=== PATIENT | male | born 1970 | race African-American/Black ===

== ENCOUNTER 2017-06-09 10:32 | Inpatient (IN) | payer OTHER ==
--- NOTE | 2017-06-09 11:05 | EDPHYS ---
Physician Documentation [facility] Name: Gabe Marte III Age: 47 yrs Sex: Male : 1970 Arrival Date: 06/09/2017 Time: 10:37 Bed 18 Private MD: Gabe Velez E ED Physician Justo Lehman HPI: 06/09 10:46 This 47 yrs old Black Male presents to ER via Unassigned with complaints of Shortness rn Of Breath. 10:46 The patient has shortness of breath at rest, with light activity. Onset: The rn symptoms/episode began/occurred at an unknown time. Duration: The symptoms are continuous. The patient's shortness of breath is aggravated by exertion, light activity, supine position, talking, walking. Severity of symptoms: At their worst the symptoms were moderate in the emergency department the symptoms are unchanged. The patient has experienced similar episodes in the past. The patient has been recently seen at the [facility] Emergency Department. Seen by me this past week, left AMA after being admitted, returns for worsening of swelling of testicles and legs, + sob, unable to obtain home O2 due to insurance issues.. Historical: - Allergies: 10:51 No Known Allergies; em - Home Meds: 10:51 Lisinopril/HCTZ 20/25 mg 1 tab daily for High Blood Pressure [Active]; metformin 500 mg em Oral Tb24 1 tab once daily [Active]; - PMHx: 10:51 Diabetes - NIDDM; Hypertension; em - PSHx: 10:51 None; em - Immunization history:: Adult Immunizations up to date. - Social history:: Smoking status: Patient/guardian denies using tobacco. - Family history:: not pertinent. - Hospitalizations: : No recent hospitalization is reported. ROS: 10:46 Constitutional: Negative for fever, chills, and weight loss, Eyes: Negative for injury, rn pain, redness, and discharge, Neck: Negative for injury, pain, and swelling, Cardiovascular: Negative for chest pain, palpitations Respiratory: Negative for wheezing, and pleuritic chest pain, Abdomen/GI: Negative for abdominal pain, nausea, vomiting, diarrhea, and constipation, MS/Extremity: Negative for injury and deformity, Skin: Negative for injury, rash, and discoloration, Neuro: Negative for headache, weakness, numbness, tingling, and seizure. Exam: 10:46 Constitutional: Morbidly obese male, no acute distress, mild tachypnea and hunched rn over chair. Head/Face: Normocephalic, atraumatic. Eyes: Pupils equal round and reactive to light, extra-ocular motions intact. Lids and lashes normal. Conjunctiva and sclera are non-icteric and not injected. Cornea within normal limits. Periorbital areas with no swelling, redness, or edema. Cardiovascular: Regular rate and rhythm with a normal S1 and S2. No gallops, murmurs, or rubs. Normal PMI, no JVD. No pulse deficits. Respiratory: + mild tachypnea with diminished air movement bilaterally Abdomen/GI: Soft, non-tender, with normal bowel sounds. No distension or tympany. No guarding or rebound. No evidence of tenderness throughout. MS/ Extremity: Pulses equal, no cyanosis. Neurovascular intact. 3+ pitting edema bilateral lower ext Neuro: Awake and alert, GCS 15, oriented to person, place, time, and situation. Cranial nerves II-XII grossly intact. Motor strength 5/5 in all extremities. Sensory grossly intact. 11:11 ECG was reviewed by the Attending Physician. rn Vital Signs: 10:51 BP 116 / 74; Pulse 110; Resp 24; Pulse Ox 81% on R/A; Weight 217.72 kg (R); Height 5 em ft. 8 in. (172.72 cm); Pain 0/10; 10:56 Pulse Ox 94% on 4 lpm NC; em 12:00 BP 143 / 97; Pulse 100; Resp 20; Pulse Ox 92% on 3 lpm NC; Pain 0/10; em 14:31 BP 145 / 94; Pulse 91; Resp 20; Pulse Ox 92% on 3 lpm NC; Pain 0/10; em 10:51 Body Mass Index 72.98 (217.72 kg, 172.72 cm) em 10:51 [facility] on 4L via NC em MDM: 10:42 Patient medically screened. rn 11:02 Differential diagnosis: Anemia CHF exacerbation, pulmonary edema. Data reviewed: vital rn signs, nurses notes, old medical records, lab test result(s), EKG, radiologic studies, and as a result, I will admit patient. Counseling: I had a detailed discussion with the patient and/or guardian regarding: the historical points, exam findings, and any diagnostic results supporting the discharge/admit diagnosis, lab results, radiology results, the need for further work-up and treatment in the hospital. Admission orders: after a detailed discussion of the patient's condition and case, the admit orders are written by me. 06/09 10:46 Order name: BMP rn 06/09 10:46 Order name: BNP rn 06/09 10:46 Order name: CBC with Diff rn 06/09 10:46 Order name: Magnesium rn 06/09 10:46 Order name: Troponin (emerg Dept Use Only) rn 06/09 11:59 Order name: Basic Metabolic Panel; Complete Time: 15:13 EDMS 06/09 10:46 Order name: XRAY CXR (1 view) rn 06/09 10:46 Order name: EKG; Complete Time: 10:47 rn 06/09 11:42 Order name: RAD; Complete Time: 15:13 EDCT 06/09 12:00 Order name: Magnesium; Complete Time: 15:13 EDCT 06/09 12:03 Order name: CBC with Automated Diff; Complete Time: 15:13 EDCT 06/09 12:07 Order name: Troponin (Emerg Dept Use Only); Complete Time: 15:13 EDCT 06/09 12:11 Order name: BNP B-Type Natriuretic Peptide; Complete Time: 15:13 EDCT 06/09 10:46 Order name: Cardiac monitoring; Complete Time: 11:04 rn 06/09 10:46 Order name: EKG - Nurse/Tech; Complete Time: 11:04 rn 06/09 10:46 Order name: IV Saline Lock; Complete Time: 13:56 rn 06/09 10:46 Order name: Labs collected and sent; Complete Time: 13:56 rn 06/09 10:46 Order name: O2 Per Protocol; Complete Time: 11:04 rn 06/09 10:46 Order name: O2 Sat Monitoring; Complete Time: 11: rn 06/09 12:43 Order name: Diet Heart Healthy; Complete Time: 12:44 em EC:11 Rate is 102 beats/min. Rhythm is regular. Right axis deviation noted. QRS is positive rn in leads I, aVF. IA interval is normal. QRS interval is normal. QT interval is normal. No Q waves. T waves are Normal. No ST changes noted. Clinical impression: Sinus tachycardia. Interpreted by me. Administered Medications: 12:00 Drug: Lasix 40 mg Route: IVP; Site: left antecubital; tw2 14:05 Follow up: Response: No adverse reaction em Disposition: 06/09/17 11:04 Hospitalization ordered by Malathi Graham for Inpatient Admission. Preliminary diagnosis are Anasarca, Unspecified combined systolic (congestive) and diastolic (congestive) heart failure, Hypoxemia. - Bed requested for Telemetry/MedSurg (Inpatient). - Status is Inpatient Admission. em - Condition is Stable. - Problem is an ongoing problem. - Symptoms are unchanged. UTI on Admission? No Signatures: Dispatcher [employer] EDSaba Matias RN Hiram Higgins, Justo Obrien LVN, MD MD rn Wise, Tara, RN RN tw2 Corrections: (The following items were deleted from the chart) 12:20 10:46 Constitutional: Morbidly obese male, no acute distress, mild tachypnea and rn hunched over chair. Head/Face: Normocephalic, atraumatic. Eyes: Pupils equal round and reactive to light, extra-ocular motions intact. Lids and lashes normal. Conjunctiva and sclera are non-icteric and not injected. Cornea within normal limits. Periorbital areas with no swelling, redness, or edema. Cardiovascular: Regular rate and rhythm with a normal S1 and S2. No gallops, murmurs, or rubs. Normal PMI, no JVD. No pulse deficits. Respiratory: + mild tachypnea with diminished air movement bilaterally Abdomen/GI: Soft, non-tender, with normal bowel sounds. No distension or tympany. No guarding or rebound. No evidence of tenderness throughout. MS/ Extremity: Pulses equal, no cyanosis. Neurovascular intact. 3+ pitting edema bilateral lower ext Neuro: Awake and alert, GCS 15, oriented to person, place, time, and situation. Cranial nerves II-XII grossly intact. Motor strength 5/5 in all extremities. Sensory grossly intact. rn
--- NOTE | 2017-06-09 11:05 | ER ---
Nurse's Notes [facility] Name: Gabe Marte III Age: 47 yrs Sex: Male : 1970 Arrival Date: 06/09/2017 Time: 10:37 Bed 18 Private MD: Gabe Velez E Diagnosis: Anasarca;Unspecified combined systolic (congestive) and diastolic (congestive) heart failure;Hypoxemia Presentation: 06/09 10:43 Presenting complaint: Patient states: "my scrotum is swollen, I was here last Friday em but I left." Denies chest pain and SOB, 81% RA, diminished bilaterally. 10:43 Transition of care: patient was not received from another setting of care. Onset of em symptoms was June 03, 2017. Care prior to arrival: None. 10:43 Method Of Arrival: Wheelchair em 10:50 Acuity: SHIV 2 iw Triage Assessment: 10:51 General: Appears uncomfortable, obese, Behavior is calm, cooperative. Pain: Denies em pain. Respiratory: Breath sounds are diminished bilaterally. Onset: The symptoms/episode began/occurred last Friday, the patient has mild shortness of breath. Historical: - Allergies: 10:51 No Known Allergies; em - Home Meds: 10:51 Lisinopril/HCTZ 20/25 mg 1 tab daily for High Blood Pressure [Active]; metformin 500 mg em Oral Tb24 1 tab once daily [Active]; - PMHx: 10:51 Diabetes - NIDDM; Hypertension; em - PSHx: 10:51 None; em - Immunization history:: Adult Immunizations up to date. - Social history:: Smoking status: Patient/guardian denies using tobacco. - Family history:: not pertinent. - Hospitalizations: : No recent hospitalization is reported. Screenin:43 Abuse screen: Denies threats or abuse. Nutritional screening: No deficits noted. em Tuberculosis screening: No symptoms or risk factors identified. Fall Risk None identified. Assessment: 10:43 General: Appears uncomfortable, obese, Behavior is calm, cooperative. Pain: Denies em pain. Neuro: Level of Consciousness is awake, alert, obeys commands, Oriented to person, place, time, situation. Cardiovascular: Denies chest pain, diaphoresis, shortness of breath, Heart tones S1 S2 present Capillary refill < 3 seconds Patient's skin is warm and dry. Rhythm is regular. Respiratory: Airway is patent Respiratory effort is even, unlabored, Respiratory pattern is regular, symmetrical, Breath sounds are diminished bilaterally. GI: Abdomen is obese, Patient currently denies nausea, vomiting. : No signs and/or symptoms were reported regarding the genitourinary system. EENT: No signs and/or symptoms were reported regarding the EENT system. Derm: Skin is intact, Skin is pink, warm \\T\\ dry. Musculoskeletal: Range of motion: intact in all extremities. 10:55 Reassessment: I agree with above assessment by Hiram Pulido LVN. iw 11:52 Reassessment: Patient appears in no apparent distress at this time. Patient and/or em family updated on plan of care and expected duration. Pain level reassessed. Patient is alert, oriented x 3, equal unlabored respirations, skin warm/dry/pink. Patient denies pain at this time. Patient states feeling better. Patient states symptoms have improved. 12:45 Reassessment: Patient appears in no apparent distress at this time. Patient and/or em family updated on plan of care and expected duration. Pain level reassessed. Patient is alert, oriented x 3, equal unlabored respirations, skin warm/dry/pink. Patient denies pain at this time. Patient states feeling better. 13:30 Reassessment: Patient appears in no apparent distress at this time. Patient and/or em family updated on plan of care and expected duration. Pain level reassessed. Patient is alert, oriented x 3, equal unlabored respirations, skin warm/dry/pink. awaiting room assignment. 14:30 Reassessment: Patient appears in no apparent distress at this time. Patient and/or em family updated on plan of care and expected duration. Pain level reassessed. eating lunch, family at bedside. Vital Signs: 10:51 BP 116 / 74; Pulse 110; Resp 24; Pulse Ox 81% on R/A; Weight 217.72 kg (R); Height 5 em ft. 8 in. (172.72 cm); Pain 0/10; 10:56 Pulse Ox 94% on 4 lpm NC; em 12:00 BP 143 / 97; Pulse 100; Resp 20; Pulse Ox 92% on 3 lpm NC; Pain 0/10; em 14:31 BP 145 / 94; Pulse 91; Resp 20; Pulse Ox 92% on 3 lpm NC; Pain 0/10; em 10:51 Body Mass Index 72.98 (217.72 kg, 172.72 cm) em 10:51 ERP at [facility], placed on 4L via NC em ED Course: 10:37 Patient arrived in ED. mr 10:37 Gabe eVlez MD is Private Physician. mr 10:42 Justo Lehman MD is Attending Physician. rn 10:43 Patient has correct armband on for positive identification. Bed in low position. Call em light in reach. Side rails up X2. Adult w/ patient. 10:47 Hiram Pulido LVN is Primary Nurse. em 10:56 Arm band placed on. em 10:57 EKG done, by public health technologist. reviewed by Justo Lehman MD. at1 11:04 Malathi Graham MD is Hospitalizing Provider. rn 11:30 No provider procedures requiring assistance completed. Inserted saline lock: 20 gauge em in left antecubital area, using aseptic technique. Blood collected. 11:30 Initial lab(s) drawn, by me, sent to lab. em 14:41 Triage completed. iw 16:11 Patient admitted, IV remains in place. em Administered Medications: 12:00 Drug: Lasix 40 mg Route: IVP; Site: left antecubital; tw2 14:05 Follow up: Response: No adverse reaction em Outcome: 11:04 Decision to Hospitalize by Provider. rn 15:30 Admitted to Tele accompanied by tech, via wheelchair, room 213, with chart, Report em called to ROSARIO Lu 15:30 Condition: good 16:12 Patient left the ED. em Signatures: Mirtha Costa Hiram Pulido, REJI COBBLER MCKAY em Margot Sharp, RN RN iw Justo Lehman MD MD rn gonzales, Amanda, business affairs manager EKG Tat1 Asha Mills RN RN tw2 Corrections: (The following items were deleted from the chart) 10:59 10:51 BP 116 / 74; Pulse 110bpm; Resp 24bpm; Pulse Ox 81% RA; Pain 0/10; ERP at em bedisde, placed on 4L via NC; em 14:31 14:30 Reassessment: eating lunch, family at bedside em em
--- NOTE | 2017-06-09 11:20 | EKG ---
Test Date: 2017-06-09 Test Time: 10:50:27 Leach Runner: FRIDA MEASUREMENT RESULTS: Intervals: Rate: 102 MO: 138 QRSD: 102 QT: 378 QTc: 492 [place]: P: 52 MO: 138 QRS: 98 T: 27 INTERPRETIVE STATEMENTS: Sinus tachycardia Rightward axis Borderline ECG Compared to ECG 06/04/2017 13:06:00 Right-axis deviation now present Sinus rhythm no longer present Ventricular premature complex(es) no longer present Prolonged QT interval no longer present Electronically Signed On 06-09-17 11:19:19 CDT by Deacon Leroy
[2017-06-09] MEDS ORDERED: FUROSEMIDE 40 MG/4 ML VIAL ONE (11:26)
--- NOTE | 2017-06-09 11:42 | RAD REPORT ---
EXAM DESCRIPTION: RAD - Chest Single View - 06/09/2017 11:18 am CLINICAL HISTORY: Shortness of breath COMPARISON: 06/04/2017 FINDINGS: Portable technique limits examination quality. Moderate pulmonary edema is noted. The heart is moderately enlarged in size. No displaced fractures. IMPRESSION: Moderate CHF versus volume overload pattern.
[2017-06-09 11:57] LABS: Absolute Lymphocytes (CBC) 1.2 K/uL (0.7-4.9); Absolute Monocytes 0.6 K/uL (0.1-1.3); Absolute Neutrophil 5.1 K/uL (1.8-8.0); Basophils % 0.5 % (0-1.3); Hematocrit 42.5 % (39.6-49.0); Lymphocytes % 17.3 % (15.3-44.8); MCH 26.5 pg (27.0-35.0); MCV 85.4 fL (80-100); MPV 8.2 fL (7.6-11.3); Monocytes % 8.6 % (3.3-12.3); RBC Red Blood Cell Count 4.98 M/uL (4.33-5.43)
[2017-06-09 11:59] LABS: Potassium 4.5 mEq/L (3.6-5.0)
[2017-06-09 12:00] LABS: Magnesium 2.1 mg/dL (1.8-2.5)
[2017-06-09] MEDS: INSULIN -REGULAR HUMAN 50 UNIT/0.5 ML ML SQ SCH ×3 (15:25→20:23)
[2017-06-09] MEDS ORDERED: ACETAMINOPHEN 500 MG TAB PO PRN (15:25)
[2017-06-09] MEDS: FUROSEMIDE 40 MG/4 ML VIAL IV SCH (17:45)
--- NOTE | 2017-06-09 18:30 | P.HP ---
Certification for Inpatient Patient admitted to: Inpatient With expected LOS: >2 Midnights Patient will require the following post-hospital care: None Practitioner: I am a practitioner with admitting privileges, knowledge of patient current condition, hospital course, and medical plan of care. Services: Services provided to patient in accordance with Admission requirements found in Title 42 Section 412.3 of the Code of Federal Regulations Patient History Date of Service: 06/09/17 Primary Care Provider: Dr Velez Reason for admission: Scrotal Swelling History of Present Illness: Patient is a 47-year-old male with past medical history of hypertension, diabetes, chronic venous hypertension with ulcer to the left lower extremity undergoing wound care, and CHF who presented to the ED as patient noticed worsening swelling of his legs, scrotum along with shortness of breath. Patient' s symptoms are moderate and progressively worsening. The patient was evaluated in the ER for similar symptoms 3 days ago and was referred for admission at that time. However patient left AMA from the hospital and stated that he would just follow up with his primary care provider. An attempt was made to set up home oxygenation for him at that time however patient's insurance refused inpatient ever got home oxygen set up. Patient thus came back to the ER today as he is got progressively short of breath and scrotal swelling got worse. Patient of note also has been noncompliant with diet and fluid restrictions at home. He states that he is compliant with medication however mother at bedside states that he takes his medication every now and then only. Patient denies any nausea vomiting fever chills chest pain cough or sputum production. In the ER his vital signs showed hypoxia. His O2 saturations were 80% on room air however came up to 90% on 2 L. His workup revealed elevated BNP level 120, chest x-ray showed moderately enlarged heart and pulmonary edema. Creatinine was elevated at 1.25. Allergies No Known Allergies Allergy (Verified 12/30/16 09:45) Home Medications: Apixaban [Eliquis] 1 tab PO BID 06/09/17 Furosemide [Lasix] 1 tab PO DAILY 06/09/17 Metoprolol Tartrate [Lopressor] 25 mg PO BID 06/09/17 Spironolactone [Aldactone*] 1 tab PO DAILY 06/09/17 - Past Medical/Surgical History Has patient received pneumonia vaccine in the past: No Diabetic: No -: Morbid obesity -: NIDDM -: HTN -: Left leg wound -: Right knee surgery - Family History Father -: Hypertension, Diabetes - Social History Smoking Status: Never smoker Alcohol use: No CD- Drugs: No Caffeine use: No Place of Residence: Home Review of Systems General: As per HPI Physical Examination - Vital Signs Temperature: 97.4 F Blood Pressure: 138/88 Pulse: 103 Respirations: 20 Pulse Ox (%): 91 - Physical Exam General: Alert, In no apparent distress, Mild distress, Obese HEENT: Atraumatic Neck: Supple, JVD distended Respiratory: Normal air movement, Crackles/rales Cardiovascular: Regular rate/rhythm, Normal S1 S2 Gastrointestinal: Normal bowel sounds, Soft and benign, Non-distended, No tenderness Musculoskeletal: Swelling (3+ BL LE) Integumentary: Venous stasis ulcer (on the left foot. ) Neurological: Normal speech, Normal tone, Normal affect Lymphatics: No axilla or inguinal lymphadenopathy Urinary: Other (Scrotal Swelling. ) External genitalia: Edema Assessment and Plan - Problems (Diagnosis) (1) Acute exacerbation of CHF (congestive heart failure) Current Visit: Yes Status: Acute Plan: Acute worensing of CHF. Most likely 2.2 to Dietary and medicaiton noncompliance -BNP 120, However with BL LE and scrotal Swelling that is worse than before -Lasix 40mg BID and Fluid restriction -Cardiology consulted. Awaiting Reccs -May need Repeat ECHO. However last ECHO in feb 2017 with Diastolic Dysfunction and EF of > 50% -Spironolactone on board as well. Qualifiers: Heart failure type: diastolic Qualified Code(s): I50.33 - Acute on chronic diastolic (congestive) heart failure (2) Scrotal edema Current Visit: No Status: Acute Plan: Acute worsening of scrotal Edema. Most likely 2.2 to volume overload -IV Lasix -Elevate the area -Urology consult if needed. (3) Anasarca Onset Date: 02/24/17 Current Visit: No Status: Acute (4) Chronic venous hypertension w/ulcer and inflammation involv left side Onset Date: 02/24/17 Current Visit: No Status: Chronic Plan: Currently with Wound care and stable. (5) Diabetes Onset Date: 10/15/16 Current Visit: No Status: Chronic Qualifiers: Diabetes mellitus type: type 2 Diabetes mellitus terminal gauger insulin use: with terminal gauger use Diabetes mellitus complication status: with skin complications Diabetes mellitus complication detail: with foot ulcer Qualified Code(s): E11.621 - Type 2 diabetes mellitus with foot ulcer; L97.509 - Non-pressure chronic ulcer of other part of unspecified foot with unspecified severity; L97.509 - Non-pressure chronic ulcer of other part of unspecified foot with unspecified severity; L97.509 - Non-pressure chronic ulcer of other part of unspecified foot with unspecified severity; L97.509 - Non-pressure chronic ulcer of other part of unspecified foot with unspecified severity; Z79.4 - terminologist (current) use of insulin; Z79.4 - care home (current) use of insulin; Z79.4 - terminologist (current) use of insulin; Z79.4 - terminologist (current ) use of insulin (6) HTN (hypertension) Onset Date: 10/15/16 Current Visit: No Status: Chronic Qualifiers: Hypertension type: essential hypertension (7) Morbid obesity Onset Date: 02/24/17 Current Visit: No Status: Chronic (8) Obesity hypoventilation syndrome Current Visit: No Status: Chronic Discharge Plan: Other Plan to discharge in: 72 Hours - Advance Directives Does patient have a Living Will: No Does patient have a Durable POA for Healthcare: No - Code Status/Comfort Care Code Status Assessed: Yes Critical Care: No
[2017-06-09] MEDS: METOPROLOL TAR 25 MG TAB PO SCH (20:22)
[2017-06-09] MEDS: APIXABAN 5 MG TABLET PO SCH (20:22)
[2017-06-09] MEDS ORDERED: ENOXAPARIN 40 MG/0.4 ML SQ SCH (21:00)
[2017-06-10 00:09] LABS: Urine Appearance CLEAR; Urine Bilirubin NEGATIVE (NEG); Urine Blood NEGATIVE (NEG); Urine Color YELLOW; Urine Glucose NEGATIVE (NEG); Urine Protein TRACE (NEG); Urine Urobilinogen 0.2 mg/dL (0.2-1.0); Urine pH 5.5 (5.0-7.0)
[2017-06-10 01:06] LABS: Urine Microscopic Reflex ORDER UMIC
[2017-06-10 01:52] LABS: Urine Bacteria <20 /HPF (NONE SEEN); Urine RBC NONE SEEN /HPF (NONE SEEN)
[2017-06-10 01:53] LABS: Urine Culture Reflex Order NOT NEEDED
[2017-06-10 05:28] LABS: Absolute Lymphocytes (CBC) 1.4 K/uL (0.7-4.9); Absolute Monocytes 0.9 K/uL (0.1-1.3); Absolute Neutrophil 5.1 K/uL (1.8-8.0); Basophils % 0.7 % (0-1.3); Eosinophils % 3.4 % (0-4.4); Hematocrit 45.8 % (39.6-49.0); Lymphocytes % 18.2 % (15.3-44.8); MCH 26.3 pg (27.0-35.0); MCV 86.9 fL (80-100); MPV 8.2 fL (7.6-11.3); Monocytes % 11.2 % (3.3-12.3); RBC Red Blood Cell Count 5.27 M/uL (4.33-5.43)
[2017-06-10 05:44] LABS: Albumin 3.1 g/dL (3.2-5.5); Potassium 4.5 mEq/L (3.6-5.0); Protein, Total 7.2 g/dL (6.0-8.3)
[2017-06-10 05:49] LABS: Bilirubin Total 0.7 mg/dL (0.3-1.2); Magnesium 2.4 mg/dL (1.8-2.5); Phosphorus 5.5 mg/dL (2.5-4.3)
[2017-06-10 06:28] LABS: Anisocytosis SLIGHT; Blood Morphology Comment NOTED (NOT SEEN); Platelet Estimate ADEQ
[2017-06-10] MEDS: INSULIN -REGULAR HUMAN 50 UNIT/0.5 ML ML SQ SCH ×4 (07:30→21:00)
[2017-06-10] MEDS: SPIRONOLACTONE 25 MG TABLET PO SCH (08:22)
[2017-06-10] MEDS: APIXABAN 5 MG TABLET PO SCH ×2 (08:22→22:17)
[2017-06-10] MEDS: FUROSEMIDE 40 MG/4 ML VIAL IV SCH ×2 (08:22→17:13)
[2017-06-10] MEDS: METOPROLOL TAR 25 MG TAB PO SCH ×2 (08:22→22:17)
--- NOTE | 2017-06-10 10:28 | P.PN ---
Subjective Date of Service: 06/10/17 Primary Care Provider: Dr Velez Chief Complaint: Scrotal Swelling She is seen and examined at bedside with RN. Case discussed with nursing staff. Currently patient has no complaints to offer. States that his scrotal swelling is getting better but slowly. Is currently in getting ready to take a shower. Wound Care saw the patient yesterday as well. Review of Systems General: As per HPI Physical Examination - Vital Signs Temperature: 98.5 F Blood Pressure: 141/86 Pulse: 97 Respirations: 22 Pulse Ox (%): 91 - Physical Exam General: Alert, In no apparent distress, Obese HEENT: Atraumatic, PERRLA, EOMI Neck: Supple, JVD distended Respiratory: Normal air movement, Crackles/rales Cardiovascular: Regular rate/rhythm, Normal S1 S2 Gastrointestinal: Normal bowel sounds, No tenderness Musculoskeletal: Erythema, Tenderness, Warmth (Left leg wound that is chronic ) Integumentary: Skin breakdown, Skin lesion Neurological: Normal speech, Normal tone, Normal affect Lymphatics: No axilla or inguinal lymphadenopathy External genitalia: Edema (Scrotal Swelling noted. Improved from yesterday) - Studies Medications List Reviewed: Yes Assessment & Plan - Problems (Diagnosis) (1) Acute exacerbation of CHF (congestive heart failure) Current Visit: Yes Status: Acute Plan: Acute worensing of ESCHF. Most likely 2.2 to Dietary and medicaiton noncompliance -BNP 120, However with BL LE and scrotal Swelling that is worse than before -Lasix 40mg BID and Fluid restriction -Cardiology consulted. Awaiting Reccs -May need Repeat ECHO. However last ECHO in feb 2017 with Diastolic Dysfunction and EF of > 50% -Spironolactone on board as well. -Setup for home oxgyen since Rest o2 < 87% on RA, Extertional o2<80 on RA and improves to o2> 92 on 4LNC Qualifiers: Heart failure type: diastolic Qualified Code(s): I50.33 - Acute on chronic diastolic (congestive) heart failure (2) Scrotal edema Current Visit: No Status: Acute Plan: Acute worsening of scrotal Edema. Most likely 2.2 to volume overload -IV Lasix -Elevate the area -Urology consult if needed. (3) Anasarca Onset Date: 02/24/17 Current Visit: No Status: Acute (4) Chronic venous hypertension w/ulcer and inflammation involv left side Onset Date: 02/24/17 Current Visit: No Status: Chronic Plan: Currently with Wound care and stable. (5) Diabetes Onset Date: 10/15/16 Current Visit: No Status: Chronic Qualifiers: Diabetes mellitus type: type 2 Diabetes mellitus roasterman insulin use: with roasterman use Diabetes mellitus complication status: with skin complications Diabetes mellitus complication detail: with foot ulcer Qualified Code(s): E11.621 - Type 2 diabetes mellitus with foot ulcer; L97.509 - Non-pressure chronic ulcer of other part of unspecified foot with unspecified severity; L97.509 - Non-pressure chronic ulcer of other part of unspecified foot with unspecified severity; L97.509 - Non-pressure chronic ulcer of other part of unspecified foot with unspecified severity; L97.509 - Non-pressure chronic ulcer of other part of unspecified foot with unspecified severity; Z79.4 - manager terminal (current) use of insulin; Z79.4 - penitentiary (current) use of insulin; Z79.4 - penitentiary (current) use of insulin; Z79.4 - manager terminal (current ) use of insulin (6) HTN (hypertension) Onset Date: 10/15/16 Current Visit: No Status: Chronic Qualifiers: Hypertension type: essential hypertension (7) Morbid obesity Onset Date: 02/24/17 Current Visit: No Status: Chronic (8) Obesity hypoventilation syndrome Current Visit: No Status: Chronic Plan: Will need home oxygen setup
--- NOTE | 2017-06-10 10:44 | RAD REPORT ---
EXAM DESCRIPTION: RAD - Chest Pa And Lat (2 Views) - 06/10/2017 10:38 am CLINICAL HISTORY: Shortness of breath, CHF history COMPARISON: June 09 TECHNIQUE: PA and lateral views of the chest were obtained. FINDINGS: The lungs are adequate volume. Vasculature and lung markings remain prominent. Cardiomegal y is still present. Lateral views are limited due to large body habitus. Trachea is midline. No ple ural effusion or pneumothorax seen. No acute bony finding noted. No aortic abnormality. IMPRESSION: CHF/volume overload pattern not substantially different from prior day study.
--- NOTE | 2017-06-10 17:41 | CON ---
Date of Consultation: 06/10/2017 Reason For Consultation: Anasarca. History Of Present Illness: Mr. Marte is a 47-year-old black male, morbidly obese, who has hyperten harsha, diabetes, has high risk factors for DVT for which he takes Eliquis. He is supposed to be on li sinopril, hydrochlorothiazide, and metformin as home. He is also supposed to be on metoprolol, Eliqu is, and aldactone. He came in with anasarca. He is now on IV 40 Lasix b.i.d., metoprolol, as well a s Eliquis and aldactone. Echocardiogram showed an ejection fraction 60% with left ventricular compli ance issue in February 2017. His chest x-ray showed CHF. EKG showed sinus tachycardia. Past Medical History: As stated above. Allergies: NONE. Review of Systems: Negative. Social History: Negative. Family History: Negative. Medications: Listed earlier. Physical Examination: General: He is obese. Vital Signs: Stable. Afebrile. HEENT: Negative. Neck: Supple no bruit. Chest: Reveals rales bilaterally. Abdomen: Obese. Extremities: Revealed 2+ edema. Chronic venous changes. Diagnostic Data: As stated earlier. Impression And Plan: 1.Exacerbation of chronic diastolic congestive heart failure. 2.Hypertension. 3.Diabetes. 4.Obesity. 5.Risk for deep venous thrombosis. I agree with metoprolol, Lasix, Eliquis, and aldactone. We will continue to follow him. Further cardiac workup recommended at this point. IRAIS/BALJEET Voice ID: [id number] Report ID: [id number]
[2017-06-11 05:39] LABS: Absolute Lymphocytes (CBC) 1.2 K/uL (0.7-4.9); Absolute Monocytes 0.8 K/uL (0.1-1.3); Absolute Neutrophil 5.8 K/uL (1.8-8.0); Basophils % 0.7 % (0-1.3); Eosinophils % 1.8 % (0-4.4); Hematocrit 46.9 % (39.6-49.0); Lymphocytes % 14.9 % (15.3-44.8); MCH 26.6 pg (27.0-35.0); MCV 87.6 fL (80-100); MPV 8.1 fL (7.6-11.3); Monocytes % 9.7 % (3.3-12.3); RBC Red Blood Cell Count 5.35 M/uL (4.33-5.43)
[2017-06-11 05:46] LABS: ALT/SGPT 27 IU/L (10-60); AST/SGOT 20 IU/L (10-42); Albumin 3.2 g/dL (3.2-5.5); Alkaline Phosphatase 69 IU/L (42-121); BUN Blood Urea Nitrogen 12 mg/dL (6-20); Bicarbonate 38 mEq/L (21-31); Bilirubin Total 0.8 mg/dL (0.3-1.2); Glomerular Filtration Rate > 90 mL/min (=/>90); Glucose Level 107 mg/dL (65-120); Magnesium 2.4 mg/dL (1.8-2.5); Phosphorus 4.4 mg/dL (2.5-4.3); Potassium 4.9 mEq/L (3.6-5.0); Protein, Total 7.7 g/dL (6.0-8.3); Sodium Level 139 mEq/L (135-145)
[2017-06-11 06:43] VITALS: BMI 77.5
[2017-06-11] MEDS: INSULIN -REGULAR HUMAN 50 UNIT/0.5 ML ML SQ SCH ×4 (07:30→21:00)
[2017-06-11] MEDS: APIXABAN 5 MG TABLET PO SCH ×2 (09:19→20:47)
[2017-06-11] MEDS: SPIRONOLACTONE 25 MG TABLET PO SCH (09:19)
[2017-06-11] MEDS: METOPROLOL TAR 25 MG TAB PO SCH ×2 (09:19→20:47)
[2017-06-11] MEDS: FUROSEMIDE 40 MG/4 ML VIAL IV SCH ×2 (09:19→16:54)
--- NOTE | 2017-06-11 10:30 | RAD REPORT ---
EXAM DESCRIPTION: RAD - Chest Pa And Lat (2 Views) - 06/11/2017 10:15 am CLINICAL HISTORY: CHF COMPARISON: 06/10/2017 FINDINGS: Bilateral pulmonary opacities are present compatible with pulmonary edema. The heart is mo derately enlarged. No displaced fractures. IMPRESSION: Moderate CHF/ volume overload pattern appears stable since comparative study.
--- NOTE | 2017-06-11 14:22 | P.PN ---
Subjective Date of Service: 06/11/17 Primary Care Provider: Dr Velez Chief Complaint: Scrotal Swelling She is seen and examined at bedside with RN. Case discussed with nursing staff. Currently patient has no complaints to offer. States that his scrotal swelling is getting better but slowly. Wound Care saw the patient yesterday as well. Review of Systems General: As per HPI Physical Examination - Vital Signs Temperature: 97.9 F Blood Pressure: 118/56 Pulse: 85 Respirations: 17 Pulse Ox (%): 99 - Physical Exam General: Alert, In no apparent distress, Obese HEENT: Atraumatic, PERRLA, EOMI Neck: Supple, JVD distended Respiratory: Normal air movement, Expiratory wheezes, Inspiratory wheezes, Rhonchi/gurgles Cardiovascular: Regular rate/rhythm, Normal S1 S2 Gastrointestinal: Normal bowel sounds, No tenderness Musculoskeletal: Erythema, Tenderness, Warmth Integumentary: Rash(es), Skin lesion Neurological: Normal speech, Normal tone, Normal affect Lymphatics: No axilla or inguinal lymphadenopathy - Studies Medications List Reviewed: Yes Assessment & Plan - Problems (Diagnosis) (1) Acute exacerbation of CHF (congestive heart failure) Onset Date: 06/11/17 Current Visit: Yes Status: Acute Plan: Acute worensing of ESCHF. Most likely 2.2 to Dietary and medication noncompliance -With BL LE and scrotal Swelling that is worse than before -Lasix 40mg BID and Fluid restriction -Cardiology consulted. Appreciated Reccs -Last ECHO in feb 2017 with Diastolic Dysfunction and EF of > 50% -Spironolactone on board as well. -Setup for oxgyen since Rest o2 < 87% on RA, Extertional o2<80 on RA and improves to o2> 92 on 4LNC Qualifiers: Heart failure type: diastolic Qualified Code(s): I50.33 - Acute on chronic diastolic (congestive) heart failure (2) Scrotal edema Onset Date: 06/11/17 Current Visit: Yes Status: Acute Plan: Improving but mildly. Acute worsening of scrotal Edema. Most likely 2.2 to volume overload -IV Lasix -Elevate the area -Urology consult if needed. (3) Anasarca Onset Date: 02/24/17 Current Visit: No Status: Chronic (4) Chronic venous hypertension w/ulcer and inflammation involv left side Onset Date: 02/24/17 Current Visit: No Status: Acute Plan: Currently with Wound care worsening today -IV abx and culture pending. (5) Diabetes Onset Date: 10/15/16 Current Visit: Yes Status: Chronic Qualifiers: Diabetes mellitus type: type 2 Diabetes mellitus mcfp insulin use: with mcfp use Diabetes mellitus complication status: with skin complications Diabetes mellitus complication detail: with foot ulcer Qualified Code(s): E11.621 - Type 2 diabetes mellitus with foot ulcer; L97.509 - Non-pressure chronic ulcer of other part of unspecified foot with unspecified severity; L97.509 - Non-pressure chronic ulcer of other part of unspecified foot with unspecified severity; L97.509 - Non-pressure chronic ulcer of other part of unspecified foot with unspecified severity; L97.509 - Non-pressure chronic ulcer of other part of unspecified foot with unspecified severity; Z79.4 - correction (current) use of insulin; Z79.4 - correction (current) use of insulin; Z79.4 - correction (current) use of insulin; Z79.4 - correction (current ) use of insulin (6) HTN (hypertension) Onset Date: 10/15/16 Current Visit: Yes Status: Chronic Qualifiers: Hypertension type: essential hypertension (7) Morbid obesity Onset Date: 02/24/17 Current Visit: Yes Status: Chronic (8) Obesity hypoventilation syndrome Onset Date: 06/11/17 Current Visit: Yes Status: Chronic Plan: Will need home oxygen setup Discharge Plan: LTAC Plan to discharge in: 24 Hours - Code Status/Comfort Care Code Status Assessed: Yes Critical Care: No
[2017-06-12 07:25] LABS: Absolute Lymphocytes (CBC) 1.2 K/uL (0.7-4.9); Absolute Monocytes 0.8 K/uL (0.1-1.3); Absolute Neutrophil 5.9 K/uL (1.8-8.0); Basophils % 0.9 % (0-1.3); Eosinophils % 2.2 % (0-4.4); Hematocrit 46.6 % (39.6-49.0); Lymphocytes % 14.9 % (15.3-44.8); MCH 26.3 pg (27.0-35.0); MPV 7.9 fL (7.6-11.3); Monocytes % 9.6 % (3.3-12.3); RBC Red Blood Cell Count 5.35 M/uL (4.33-5.43)
[2017-06-12 07:29] LABS: Albumin 3.1 g/dL (3.2-5.5); Bilirubin Total 1.2 mg/dL (0.3-1.2); Magnesium 2.5 mg/dL (1.8-2.5); Phosphorus 4.4 mg/dL (2.5-4.3); Potassium 4.6 mEq/L (3.6-5.0); Protein, Total 7.6 g/dL (6.0-8.3)
[2017-06-12] MEDS: INSULIN -REGULAR HUMAN 50 UNIT/0.5 ML ML SQ SCH ×4 (07:30→20:36)
[2017-06-12] MEDS ORDERED: MEDIHONEY 44 ML TOPICAL TUBE TOP SCH (09:00)
[2017-06-12] MEDS: METOPROLOL TAR 25 MG TAB PO SCH ×2 (09:23→20:35)
[2017-06-12] MEDS: FUROSEMIDE 40 MG/4 ML VIAL IV SCH ×3 (09:23→16:45)
[2017-06-12] MEDS: APIXABAN 5 MG TABLET PO SCH ×2 (09:23→20:35)
[2017-06-12] MEDS: SPIRONOLACTONE 25 MG TABLET PO SCH (09:23)
--- NOTE | 2017-06-12 10:57 | RAD REPORT ---
EXAM DESCRIPTION: RAD - Chest Pa And Lat (2 Views) - 06/12/2017 10:46 am CLINICAL HISTORY: CHF COMPARISON: June 11June 10 TECHNIQUE: PA and lateral views of the chest were obtained. FINDINGS: The lungs are normal volume. Cardiomegaly is still present. Vasculature and lung markings remain prominent. There may be some fractional diminishment in the interstitial edema pattern of the differential is minimal. Trachea is midline. Heart size is normal and central vasculature is within normal limits. No pleural effusion or pneumothorax seen. No acute bony finding noted. No aortic a bnormality. IMPRESSION: CHF/volume overload pattern showing no significant change since June 11. Interstitial edema component may be fractionally improved though the differential is minimal.
--- NOTE | 2017-06-12 16:05 | P.DS ---
Admission Date: 06/09/17 Discharge Date: 06/12/17 Primary Care Provider: Dr Velez Disposition: [facility] Discharge Condition: GOOD Reason for Admission: Scrotal Swelling Consultations: ID Cardiology - Problems (1) Acute exacerbation of CHF (congestive heart failure) Onset Date: 06/11/17 Current Visit: Yes Status: Acute Qualifiers: Heart failure type: diastolic Qualified Code(s): I50.33 - Acute on chronic diastolic (congestive) heart failure (2) Scrotal edema Onset Date: 06/11/17 Current Visit: Yes Status: Acute (3) Anasarca Onset Date: 02/24/17 Current Visit: No Status: Chronic (4) Chronic venous hypertension w/ulcer and inflammation involv left side Onset Date: 02/24/17 Current Visit: No Status: Acute (5) Diabetes Onset Date: 10/15/16 Current Visit: Yes Status: Chronic Qualifiers: Diabetes mellitus type: type 2 Diabetes mellitus manager intermediate insulin use: with manager intermediate use Diabetes mellitus complication status: with skin complications Diabetes mellitus complication detail: with foot ulcer Qualified Code(s): E11.621 - Type 2 diabetes mellitus with foot ulcer; L97.509 - Non-pressure chronic ulcer of other part of unspecified foot with unspecified severity; L97.509 - Non-pressure chronic ulcer of other part of unspecified foot with unspecified severity; L97.509 - Non-pressure chronic ulcer of other part of unspecified foot with unspecified severity; L97.509 - Non-pressure chronic ulcer of other part of unspecified foot with unspecified severity; Z79.4 - senior care (current) use of insulin; Z79.4 - senior care (current) use of insulin; Z79.4 - senior care (current) use of insulin; Z79.4 - rat exterminator (current ) use of insulin (6) HTN (hypertension) Onset Date: 10/15/16 Current Visit: Yes Status: Chronic Qualifiers: Hypertension type: essential hypertension (7) Morbid obesity Onset Date: 02/24/17 Current Visit: Yes Status: Chronic (8) Obesity hypoventilation syndrome Onset Date: 06/11/17 Current Visit: Yes Status: Chronic Brief History of Present Illness: Patient is a 47-year-old male with past medical history of hypertension, diabetes, chronic venous hypertension with ulcer to the left lower extremity undergoing wound care, and CHF who presented to the ED as patient noticed worsening swelling of his legs, scrotum along with shortness of breath. Patient' s symptoms are moderate and progressively worsening. The patient was evaluated in the ER for similar symptoms 3 days ago and was referred for admission at that time. However patient left AMA from the hospital and stated that he would just follow up with his primary care provider. An attempt was made to set up home oxygenation for him at that time however patient's insurance refused inpatient ever got home oxygen set up. Patient thus came back to the ER today as he is got progressively short of breath and scrotal swelling got worse. Patient of note also has been noncompliant with diet and fluid restrictions at home. He states that he is compliant with medication however mother at bedside states that he takes his medication every now and then only. Patient denies any nausea vomiting fever chills chest pain cough or sputum production. In the ER his vital signs showed hypoxia. His O2 saturations were 80% on room air however came up to 90% on 2 L. His workup revealed elevated BNP level 120, chest x-ray showed moderately enlarged heart and pulmonary edema. Creatinine was elevated at 1.25. Hospital Course: Overall during the hospital stay patient remained stable Initially patient was admitted to the hospital for acute CHF exacerbation along with scrotal edema. Patient was kept on IV Lasix along with BiPAP and was successfully weaned off to nasal cannula afterwards. Patient had marked resolution of his symptoms and was not short of breath anymore and scrotal edema did improve as well. Cardiology was consulted who agreed with the plan and asked the patient to be on fluid restriction along with sodium restricted diet. Patient demonstrated understanding. Scrotum was elevated as well while patient was here in the hospital. Patient has a chronic left-sided leg wound which got progressively worse along the process at home as well. It was requiring complex wound care in this culture were collected. Patient was growing [place] and was placed on Iv abx and this patient was transferred to a long-term acute care unit for IV antibiotics along with complex wound care for further therapy. At the long-term acute care facility patient is also to get a sleep study done for his OHA. Patient and mom educated extensively on disease process. Patient discharged [facility] for further care Vital Signs/Physical Exam: Temp Pulse Resp BP Pulse Ox 97.7 F 80 19 106/54 L 95 06/12/17 12:00 06/12/17 12:00 06/12/17 12:00 06/12/17 12:00 06/12/17 12:00 General: Alert, In no apparent distress, Obese HEENT: Atraumatic, PERRLA, EOMI Neck: Supple, JVD not distended Respiratory: Normal air movement, Crackles/rales, Rhonchi/gurgles Cardiovascular: Regular rate/rhythm, Normal S1 S2 Gastrointestinal: Normal bowel sounds, No tenderness, Distended Musculoskeletal: No tenderness Integumentary: Skin breakdown, Skin lesion, Tenderness/swelling, Warmth Neurological: Normal speech, Normal tone, Normal affect Lymphatics: No axilla or inguinal lymphadenopathy Laboratory Data at Discharge: WBC 8.1 K/uL (4.3-10.9) 06/12/17 06:51 Hgb 14.1 g/dL (13.6-17.9) 06/12/17 06:51 Hct 46.6 % (39.6-49.0) 06/12/17 06:51 Plt Count 358 K/uL (152-406) 06/12/17 06:51 Sodium 139 mEq/L (135-145) 06/12/17 06:51 Potassium 4.6 mEq/L (3.6-5.0) 06/12/17 06:51 BUN 14 mg/dL (6-20) 06/12/17 06:51 Creatinine 1.11 mg/dL (0.61-1.24) 06/12/17 06:51 Glucose 98 mg/dL (65-120) 06/12/17 06:51 Phosphorus 4.4 mg/dL (2.5-4.3) H 06/12/17 06:51 Magnesium 2.5 mg/dL (1.8-2.5) 06/12/17 06:51 Total Bilirubin 1.2 mg/dL (0.3-1.2) 06/12/17 06:51 AST 21 IU/L (10-42) 06/12/17 06:51 ALT 22 IU/L (10-60) 06/12/17 06:51 Alkaline Phosphatase 63 IU/L (42-121) 06/12/17 06:51 B-Natriuretic Peptide 59 pg/ml (<=100) 06/12/17 06:51 Triglycerides 62 mg/dL (35-160) 06/10/17 04:50 Cholesterol 113 mg/dL (<200) 06/10/17 04:50 HDL Cholesterol 30 mg/dL (27-67) 06/10/17 04:50 Cholesterol/HDL Ratio 3.77 06/10/17 04:50 Home Medications: Apixaban [Eliquis] 1 tab PO BID 06/09/17 Furosemide [Lasix] 1 tab PO DAILY 06/09/17 Metoprolol Tartrate [Lopressor*] 25 mg PO BID 06/09/17 Spironolactone [Aldactone*] 1 tab PO DAILY 06/09/17 Ceftriaxone [Rocephin 1 gm/50 ml Ivpb] 1 gm IV DAILY #14 bag 06/12/17 New Medications: Ceftriaxone [Rocephin 1 gm/50 ml Ivpb] 1 gm IV DAILY #14 bag Diet: Regular Activity: Ad noé Followup: Mayo Pacheco MD [ACTIVE - CAN ADMIT] - 1-2 Weeks David Bettencourt MD [ACTIVE - CAN ADMIT] - 1-2 Weeks
[2017-06-12 20:37] VITALS: BP 116/66
[2017-06-12 21:04] VITALS: O2SAT 93
[2017-06-12 22:25] VITALS: TEMP 97.8
== END 2017-06-12 21:45 | DRG 292 ==
LOC: ER 10:32 → ERHOLD 11:05 → 2ND 15:22
PROVIDERS: ADMIT Family Medicine; ATTEND Family Medicine
DX: I11.0 Hypertensive heart disease with heart failure; I50.33 Acute on chronic diastolic (congestive) heart failure; E66.2 Morbid (severe) obesity with alveolar hypoventilation; E11.9 Type 2 diabetes mellitus without complications; N50.89 Other specified disorders of the male genital organs
CPT/HCPCS: 36415; 71045; 71046; 80048; 80053; 80061; 81003; 81015; 82962; 83735; 83880; 84100; 84443; 84484; 85025; 87070; 87077; 87186; 87205; 93005; 94760; 96374; 99285